=== PATIENT | female | born 1995 | race Caucasian/White ===

== ENCOUNTER 2021-12-30 09:26 | Outpatient (CLI) | payer OTHER, MEDICAID | END 2021-12-30 09:27 | disposition home or self-care (01) | LOC: CSHLAB 09:26 | PROVIDERS: ATTEND Advanced Practice Midwife | DX: Z20.822 Contact with and (suspected) exposure to COVID-19 (principal) | CPT/HCPCS: U0003; U0005 ==

== ENCOUNTER 2022-01-01 06:15 | Inpatient (IN) | payer MEDICAID, OTHER ==
[2022-01-01] MEDS: Lactated Ringer's 1,000 ML IV SCH ×2 (06:50→10:02)
[2022-01-01 07:01] VITALS: BMI 31.2
[2022-01-01] MEDS ORDERED: Bupivacaine/Epinephrine 0.25% 30 ML VIAL ONE (08:00)
[2022-01-01] MEDS ORDERED: ePHEDrine Sulfate 50 MG/10 ML VIAL ONE (08:00)
[2022-01-01] MEDS ORDERED: Butorphanol Tartrate 1 MG/ML VIAL SLOW IVP PRN (08:29)
[2022-01-01] MEDS ORDERED: Diphenoxylate HCl/Atropine Tablet PO PRN (08:29)
[2022-01-01] MEDS ORDERED: Carboprost 250 MCG/ML AMP IM PRN (08:29)
[2022-01-01] MEDS ORDERED: hydrALAZINE 20 MG/ML VIAL SLOW IVP PRN ×2 (08:29→23:36)
[2022-01-01] MEDS ORDERED: Methylergonovine 0.2 MG/ML VIAL IM PRN (08:29)
[2022-01-01] MEDS ORDERED: HYDROcodone/Acetaminophen 5/325 mg Tablet PO PRN ×4 (08:29→23:36)
[2022-01-01] MEDS ORDERED: Misoprostol 200 MCG TAB PR PRN (08:29)
[2022-01-01] MEDS ORDERED: Acetaminophen 500 MG TAB PO PRN (08:29)
[2022-01-01] MEDS ORDERED: Ondansetron PF 4 MG/2 ML Vial IVP PRN ×2 (08:29→23:36)
[2022-01-01] MEDS ORDERED: Ibuprofen 800 MG TAB PO PRN (08:29)
[2022-01-01] MEDS ORDERED: Lidocaine 1% (PF) 30 ML VIAL SC PRN (08:29)
[2022-01-01] MEDS ORDERED: Promethazine HCl 25 MG/ML VIAL IM PRN ×2 (08:29→23:36)
[2022-01-01] MEDS ORDERED: NS w/ Oxytocin 30 units 500 ML IV SCH ×3 (08:30→23:45)
[2022-01-01 08:52] LABS: Mean Corpuscular HGB CONC 34.3 g/dL (32.0-36.0); Mean Corpuscular Hemoglobin 30.9 pg (27.0-33.0); Mean Platelet Volume 12.5 fl (7.4-10.4); Platelet Count 219 10x3/uL (150-450); RBC Distribution Width 14.3 % (11.5-14.5); Red Blood Cell (RBC) Count 4.21 10x6/uL (3.90-5.03); White Blood Cell (WBC) Count 10.2 10x3/uL (3.5-10.5)
[2022-01-01 09:25] LABS: Hep B Surf Ag Non-Reactive S/CO (NonReactive)
[2022-01-01 09:27] LABS: Syphilis Antibody Nonreactive (Nonreactive); Syphilis Antibody Index 0.04 S/CO (<1.00 Non-Reactive)
[2022-01-01] MEDS ORDERED: Fentanyl 2 mcg/Bup 0.1% Cadd 100 ML ONE ×2 (09:42→16:52)
[2022-01-01 10:00] LABS: HBSAg Index 0.18 S/CO (0-0.99)
[2022-01-01] MEDS ORDERED: Fentanyl 100 MCG/2 ML VIAL ONE (16:20)
[2022-01-01] MEDS ORDERED: Fentanyl 100 MCG/2 ML VIAL SLOW IVP SCH (16:45)
[2022-01-01] MEDS ORDERED: Preparation H Ointment 28 GM TUBE PR PRN (23:36)
[2022-01-01] MEDS ORDERED: Bisacodyl 10 MG SUPP PR PRN (23:36)
[2022-01-01] MEDS ORDERED: Benzocaine-Menthol 82.5 ML CAN TOP PRN (23:36)
[2022-01-01] MEDS ORDERED: Boostrix 0.5 ML (Tdap) VIAL IM ONE (23:36)
[2022-01-01] MEDS ORDERED: diphenhydrAMINE 25 MG CAP PO PRN (23:36)
[2022-01-01] MEDS ORDERED: Lanolin Ointment 7 GM TUBE TOP PRN (23:36)
[2022-01-01] MEDS ORDERED: Milk Of Magnesia 30 ML UDCUP PO PRN (23:36)
[2022-01-01] MEDS ORDERED: Zolpidem Tartrate 5 MG TAB PO PRN (23:36)
[2022-01-02] MEDS: Ibuprofen 800 MG TAB PO SCH ×3 (06:25→21:18)
[2022-01-02] MEDS: Prenatal Vitamin 1 TAB PO SCH (08:36)
[2022-01-02] MEDS: Docusate 100 MG CAP PO SCH ×2 (08:36→21:18)
[2022-01-02 19:40] VITALS: BP 107/59
[2022-01-03 04:53] VITALS: TEMP 98.4
[2022-01-03] MEDS: Ibuprofen 800 MG TAB PO SCH (05:52)
[2022-01-03] MEDS: Prenatal Vitamin 1 TAB PO SCH (08:10)
[2022-01-03] MEDS: Docusate 100 MG CAP PO SCH (08:10)
== END 2022-01-03 12:25 | disposition home or self-care (01) | DRG 807 ==
LOC: CSHLD/OP 06:15 → CSHLD 18:50 → CSHPP 21:20
PROVIDERS: ADMIT Obstetrics & Gynecology; ATTEND Obstetrics & Gynecology
PROC: 10E0XZZ Delivery of Products of Conception, External Approach (ICD-10-PCS; principal; 2022-01-01)
PROC: 0UQMXZZ Repair Vulva, External Approach (ICD-10-PCS; 2022-01-01)
DX: O69.81X0 Labor and delivery complicated by cord around neck, without compression, not applicable or unspecified (principal); Z37.0 Single live birth; O71.82 Other specified trauma to perineum and vulva; Z3A.40 40 weeks gestation of pregnancy
CPT/HCPCS: 36415; 51702; 85027; 86780; 86850; 86900; 86901; 87340; 99285; J2001; J2590; J3010; J7120